=== PATIENT | female | born 1990 | race Caucasian/White ===

== ENCOUNTER 2018-03-19 20:08 | Emergency (ER) | payer BC, OTHER ==
[2018-03-19 20:16] VITALS: BP 127/70
--- NOTE | 2018-03-19 20:35 | EDPHY ---
H & P Time Seen by Provider: 03/19/18 20:19 HPI/ROS: CHIEF COMPLAINT: Headache after hitting her head HISTORY OF PRESENT ILLNESS: 27-year-old woman has a history of previous concussions because she played competitive soccer for over a decade. Tuesday she hit her head while she was reaching into her car to get something. At that time she did not have persistent headache, she was a little sore she hit her head, resolved in a couple of hours. Today at around 3:15 p.m. She was playing soccer and went to head the ball and hit on the same place she hit her head on Tuesday. Vertex of her head. After that she did not have loss of consciousness or seizure. She has had persistent headache which was worse earlier but now is better and is 4 to 5/10. Worse with exposure to light. Associated with some nausea but no vomiting. When she was looking at her phone she felt like the screen was blurry and she had some blurriness in her peripheral vision on the right side. She did not have neck pain or weakness or numbness in extremities or confusion. Symptoms are better now but she is not completely back to normal. REVIEW OF SYSTEMS: Eye: HPI ENT: no sore throat Cardiac: no chest pain or syncope Pulmonary: no cough or SOB Abdomen: no vomiting, diarrhea, abdominal pain Musculoskeletal: no back pain or neck pain Skin: no rash Neuro: HPI Constitutional: no fever : no urinary symptoms A comprehensive 10 point review of systems is otherwise negative aside from elements mentioned in the history of present illness. PAST MEDICAL HISTORY: Negative except for HPI Social history: Nonsmoker, no alcohol General Appearance: Alert and conversant, cooperative. Eyes: No scleral icterus. Pupils equal reactive extraocular motion intact no nystagmus. ENT, Mouth: Normal mucous membranes. No hemotympanum or bruising behind the ear or around the eyes. Respiratory: Normal respiratory effort, breath sounds equal, lungs are clear to auscultation. Cardiovascular: Regular rate and rhythm. Gastrointestinal: Abdomen is soft and non tender. Neurological: Alert, face symmetric, normal motor and sensory in extremities. [id number] normal bilaterally, speech fluent, not ataxic, negative Romberg. Skin: Warm and dry, no rashes. Musculoskeletal: No spinal tenderness. Psychiatric: Not agitated. Emergency Department course/MDM: Likely has concussion, does not have anticoagulation, or other features to suggest that she is at high risk for intracranial bleed, subarachnoid, epidural or subdural. Warned no soccer or potentially contact sports until cleared by her primary care physician. Declined pain medication or antiemetics. Smoking Status: Never smoked Constitutional: Initial Vital Signs Temperature (C) 36.7 C 03/19/18 20:14 Heart Rate 91 03/19/18 20:14 Respiratory Rate 18 03/19/18 20:14 Blood Pressure 127/70 H 03/19/18 20:14 O2 Sat (%) 96 03/19/18 20:14 O2 Delivery Mode Room Air Allergies/Adverse Reactions: No Known Allergies Allergy (Unverified 03/19/18 20:14) Home Medications: Medication Instructions Recorded NK [No Known Home Meds] 03/19/18 MDM/Departure - Depart Disposition: Home, Routine, Self-Care Clinical Impression: Concussion Qualifiers: Encounter type: initial encounter Loss of consciousness presence/duration: without LOC Qualified Code(s): S06.0X0A - Concussion without loss of consciousness, initial encounter Condition: Good Instructions: Concussion (ED) Additional Instructions: No soccer or other potentially contact sports until seen by your primary care physician and cleared for return to full activity. Tylenol and Motrin or okay for headache. Referrals: Meg Vicente MD [Primary Care Provider] - As per Instructions (this week in the office)
== END 2018-03-19 20:43 | disposition home or self-care (01) ==
DX: S06.0X0A Concussion without loss of consciousness, initial encounter (principal); W22.8XXA Striking against or struck by other objects, initial encounter; Y93.66 Activity, soccer